=== PATIENT | female | born 1955 | race Caucasian/White ===

== ENCOUNTER 2017-09-28 11:14 | Inpatient (IN) | payer SELFPAY ==
[~2017-09-28] VITALS: Ht 170.2 cm; Wt 70.7 kg
[2017-09-28 12:16] LABS: BASOPHILS ABSOLUTE AUTO 0.02 K/mm3 (0.00-0.23); BASOPHILS PERCENT AUTO 0 % (0-2); EOSINOPHILS ABSOLUTE AUTO 0.02 K/mm3 (0.00-0.68); EOSINOPHILS PERCENT AUTO 0 % (0-6); Hematocrit 38.7 % (33.0-51.0); Hemoglobin 13.4 g/dL (11.5-16.0); IMMATURE GRAN ABSOLUTE AUTO 0.06 K/mm3 (0.00-0.10); IMMATURE GRAN PERCENT AUTO 0 % (0-1); LYMPHOCYTES ABSOLUTE AUTO 2.08 K/mm3 (0.84-5.20); LYMPHOCYTES PERCENT AUTO 14 % (21-46); MONOCYTES ABSOLUTE AUTO 0.75 K/mm3 (0.16-1.47); MONOCYTES PERCENT AUTO 5 % (4-13); Mean Corpuscular HGB 29.7 pg (26.0-34.0); Mean Corpuscular HGB Conc 34.6 g/dL (31.5-36.5); Mean Corpuscular Volume 86 fL (80-100); Mean Platelet Volume 11.3 fL (9.1-12.4); NEUTROPHILS ABSOLUTE AUTO 11.86 K/mm3 (1.96-9.15); NEUTROPHILS PERCENT AUTO 80 % (41-73); Platelet Count 209 K/mm3 (150-400); RDW Coefficient Variation 13.4 % (11.7-14.2); RDW Standard Deviation 41.9 fL (35.1-46.3); Red Blood Cell Count 4.51 M/mm3 (3.80-5.20); White Blood Cell Count 14.79 K/mm3 (4.00-11.30)
[2017-09-28 12:34] LABS: Alanine Aminotransfer (ALT/SGP 109 U/L (12-78); Albumin, Blood 3.3 g/dL (3.4-5.0); Albumin/Globulin Ratio 0.9 (0.8-1.8); Alk Phos 160 U/L (50-136); Anion Gap 5 mmol/L (6-16); Aspartate Aminotrans (AST/SGOT 87 U/L (12-37); Bilirubin, Total 0.5 mg/dL (0.1-1.0); Blood Urea Nitrogen 13 mg/dL (8-24); Bun/Creatinine Ratio 18.3 (12.0-20.0); CO2, Blood 25 mmol/L (21-32); Calcium, Blood 8.8 mg/dL (8.5-10.1); Chloride, Blood 107 mmol/L (98-108); Creatinine, Blood 0.71 mg/dL (0.40-1.00); Globulin, Blood 3.8 g/dL (2.2-4.0); Glomerular Filtration Rate >60 (60-); Glucose, Blood 118 mg/dL (70-99); Potassium, Blood 3.6 mmol/L (3.5-5.5); Sodium, Blood 137 mmol/L (136-145); Total Protein, Blood 7.1 g/dL (6.4-8.2)
[2017-09-28] MEDS ORDERED: Inderal 20 mg T20 MG PO (13:01)
[2017-09-28] MEDS ORDERED: PRAV20 PO (13:01)
[2017-09-28] MEDS ORDERED: PROBIOTIC1 EAC1 PO (13:02)
[2017-09-28] MEDS ORDERED: Prozac20 MG PO (13:02)
[2017-09-28 15:22] LABS: Appearance, Urine Clear (Clear); Bilirubin, Urine Neg (Neg); Blood, Urine 3+ (Neg); Color, Urine Yellow (P-Yellow); Glucose Qualitative, Urine Neg (Neg); Ketones, Urine 3+ (Neg); Leukocyte Esterase, Urine Neg (Neg); Nitrite, Urine Neg (Neg); Protein, Urine 1+ (Neg); Specific Gravity, Urine 1.015 (1.003-1.022); Urobilinogen, Urine NORM (Normal)
[2017-09-28 15:26] LABS: Bacteria Few /hpf; Squamous Epithelial Cells Few /hpf (Few); White Blood Cells, Urine 0-2 /hpf (0-5)
[2017-09-28 16:53] LABS: Hematocrit 35.8 % (33.0-51.0); Hemoglobin 12.3 g/dL (11.5-16.0)
[2017-09-28 20:18] LABS: Hematocrit 35.3 % (33.0-51.0)
[2017-09-29 05:17] LABS: Alanine Aminotransfer (ALT/SGP 87 U/L (12-78); Albumin/Globulin Ratio 0.9 (0.8-1.8); Alk Phos 160 U/L (50-136); Anion Gap 9 mmol/L (6-16); Aspartate Aminotrans (AST/SGOT 70 U/L (12-37); Bilirubin, Total 0.7 mg/dL (0.1-1.0); Blood Urea Nitrogen 8 mg/dL (8-24); CO2, Blood 22 mmol/L (21-32); Calcium, Blood 8.4 mg/dL (8.5-10.1); Chloride, Blood 109 mmol/L (98-108); Creatinine, Blood 0.73 mg/dL (0.40-1.00); Globulin, Blood 3.3 g/dL (2.2-4.0); Glomerular Filtration Rate >60 (60-); Glucose, Blood 83 mg/dL (70-99); Potassium, Blood 3.6 mmol/L (3.5-5.5); Sodium, Blood 140 mmol/L (136-145); Total Protein, Blood 6.3 g/dL (6.4-8.2)
[2017-09-29 10:28] LABS: Alpha Feto Protein, Tumor Mkr 2.5 ng/mL (0.0-8.0); Carcinoembryonic Antigen 3.5 ng/mL (0.0-3.0)
[2017-09-30 05:09] LABS: BASOPHILS ABSOLUTE AUTO 0.02 K/mm3 (0.00-0.23); BASOPHILS PERCENT AUTO 0 % (0-2); EOSINOPHILS ABSOLUTE AUTO 0.04 K/mm3 (0.00-0.68); EOSINOPHILS PERCENT AUTO 0 % (0-6); Hematocrit 33.8 % (33.0-51.0); Hemoglobin 11.5 g/dL (11.5-16.0); IMMATURE GRAN ABSOLUTE AUTO 0.01 K/mm3 (0.00-0.10); IMMATURE GRAN PERCENT AUTO 0 % (0-1); LYMPHOCYTES ABSOLUTE AUTO 2.83 K/mm3 (0.84-5.20); LYMPHOCYTES PERCENT AUTO 24 % (21-46); MONOCYTES ABSOLUTE AUTO 0.89 K/mm3 (0.16-1.47); MONOCYTES PERCENT AUTO 7 % (4-13); Mean Corpuscular HGB 29.5 pg (26.0-34.0); Mean Corpuscular Volume 87 fL (80-100); Mean Platelet Volume 10.7 fL (9.1-12.4); NEUTROPHILS ABSOLUTE AUTO 8.21 K/mm3 (1.96-9.15); NEUTROPHILS PERCENT AUTO 68 % (41-73); Platelet Count 201 K/mm3 (150-400); RDW Coefficient Variation 13.5 % (11.7-14.2); RDW Standard Deviation 42.5 fL (35.1-46.3)
[2017-09-30 05:39] LABS: Alanine Aminotransfer (ALT/SGP 94 U/L (12-78); Albumin, Blood 2.8 g/dL (3.4-5.0); Albumin/Globulin Ratio 0.8 (0.8-1.8); Alk Phos 196 U/L (50-136); Anion Gap 6 mmol/L (6-16); Aspartate Aminotrans (AST/SGOT 67 U/L (12-37); Bilirubin, Total 0.3 mg/dL (0.1-1.0); Blood Urea Nitrogen 10 mg/dL (8-24); CO2, Blood 27 mmol/L (21-32); Calcium, Blood 8.4 mg/dL (8.5-10.1); Chloride, Blood 106 mmol/L (98-108); Creatinine, Blood 0.77 mg/dL (0.40-1.00); Globulin, Blood 3.6 g/dL (2.2-4.0); Glomerular Filtration Rate >60 (60-); Glucose, Blood 123 mg/dL (70-99); Potassium, Blood 3.8 mmol/L (3.5-5.5); Sodium, Blood 139 mmol/L (136-145); Total Protein, Blood 6.4 g/dL (6.4-8.2)
[2017-09-30 07:18] LABS: HCV Non Reactive (NR)
[2017-09-30 07:20] LABS: RNP/SM Ab IgG 0.4 AI (<1.0)
[2017-10-01] MEDS ORDERED: Nicoderm Cq1 EAC1 TOP (10:49)
[2017-10-01] MEDS ORDERED: Omeprazole20 M1 PO (10:50)
[2017-10-01] MEDS ORDERED: PENVK500 PO (10:53)
[2017-10-01] MEDS ORDERED: SENN187 PO (10:53)
[2017-10-01] MEDS ORDERED: ROXICODONE5 MG PO (10:53)
[2017-10-02 05:54] LABS: C3 107 mg/dL
[2017-10-04 09:28] LABS: Hepatitis C Antibody Non Reactive (NR)
== END 2017-10-01 11:12 | disposition home or self-care (01) | DRG 378 ==
LOC: ER 11:14 → MEDS 11:15 → ENPENDDIS 10-01 10:13 → MEDS 10-01 11:12
PROVIDERS: Internal Medicine; Internal Medicine Gastroenterology; Physician Assistant
PROC: 0DB78ZX Excision of Stomach, Pylorus, Via Natural or Artificial Opening Endoscopic, Diagnostic (ICD-10-PCS; 2017-10-01)
PROC: 0DB68ZX Excision of Stomach, Via Natural or Artificial Opening Endoscopic, Diagnostic (ICD-10-PCS; 2017-10-01)
PROC: 0DB98ZX Excision of Duodenum, Via Natural or Artificial Opening Endoscopic, Diagnostic (ICD-10-PCS; principal; 2017-10-01 09:00)
DX: K26.4 Chronic or unspecified duodenal ulcer with hemorrhage (principal); A04.71 Enterocolitis due to Clostridium difficile, recurrent; L03.211 Cellulitis of face; T39.315A Adverse effect of propionic acid derivatives, initial encounter; F17.210 Nicotine dependence, cigarettes, uncomplicated; K25.9 Gastric ulcer, unspecified as acute or chronic, without hemorrhage or perforation; F32.9 Major depressive disorder, single episode, unspecified; E78.5 Hyperlipidemia, unspecified; R74.0 Nonspecific elevation of levels of transaminase and lactic acid dehydrogenase [LDH]; G25.0 Essential tremor; K04.7 Periapical abscess without sinus; Z79.899 Other long term (current) drug therapy; Z88.1 Allergy status to other antibiotic agents; Z88.5 Allergy status to narcotic agent; Z88.2 Allergy status to sulfonamides; Z98.890 Other specified postprocedural states
CPT/HCPCS: 36415; 70491; 76705; 80053; 80074; 81001; 82105; 82272; 82378; 83690; 85014; 85018; 85025; 86160; 86225; 86235; 86674; 86704; 86708; 86709; 86803; 86850; 86900; 86901; 87340; 87493; 88305; 88342; 96365; 96366; 96367; 96375; 96376; 99285; C9113; G0378; J0295; J3010; J7030; J7120; Q9967

== ENCOUNTER 2018-01-09 11:36 | Day surgery (SDC) | payer SELFPAY ==
[~2018-01-09] VITALS: Ht 170.2 cm; Wt 66.9 kg
[~2018-01-09 11:36] MED LIST: Inderal 20 mg T20 MG PO; Nicoderm Cq1 EAC1 TOP; Omeprazole20 M1 PO; PENVK500 PO; PRAV20 PO; PROBIOTIC1 EAC1 PO; Prozac20 MG PO; ROXICODONE5 MG PO; SENN187 PO
== END 2018-01-09 14:10 | disposition home or self-care (01) ==
LOC: ORSCSDS 11:36
PROVIDERS: Internal Medicine Gastroenterology
PROC: 0DBM8ZX Excision of Descending Colon, Via Natural or Artificial Opening Endoscopic, Diagnostic (ICD-10-PCS; principal; 2018-01-09 12:45)
PROC: 0DBL8ZX Excision of Transverse Colon, Via Natural or Artificial Opening Endoscopic, Diagnostic (ICD-10-PCS; principal; 2018-01-09 12:45)
PROC: 0DBE8ZX Excision of Large Intestine, Via Natural or Artificial Opening Endoscopic, Diagnostic (ICD-10-PCS; principal; 2018-01-09 12:45)
DX: R19.7 Diarrhea, unspecified (principal); A04.72 Enterocolitis due to Clostridium difficile, not specified as recurrent; D12.3 Benign neoplasm of transverse colon; K63.5 Polyp of colon; K64.8 Other hemorrhoids; K57.30 Diverticulosis of large intestine without perforation or abscess without bleeding; F17.210 Nicotine dependence, cigarettes, uncomplicated; Z79.899 Other long term (current) drug therapy
CPT/HCPCS: 88305; J7120

== ENCOUNTER → 2019-05-01 | Outpatient (CLI) | payer SELFPAY ==
[2019-05-01 15:10] LABS: BASOPHILS ABSOLUTE AUTO 0.02 K/mm3 (0.00-0.23); BASOPHILS PERCENT AUTO 0 % (0-2); EOSINOPHILS ABSOLUTE AUTO 0.03 K/mm3 (0.00-0.68); EOSINOPHILS PERCENT AUTO 0 % (0-6); Hematocrit 40.6 % (33.0-51.0); Hemoglobin 13.4 g/dL (11.5-16.0); IMMATURE GRAN ABSOLUTE AUTO 0.02 K/mm3 (0.00-0.10); IMMATURE GRAN PERCENT AUTO 0 % (0-1); LYMPHOCYTES PERCENT AUTO 32 % (21-46); MONOCYTES ABSOLUTE AUTO 0.38 K/mm3 (0.16-1.47); MONOCYTES PERCENT AUTO 5 % (4-13); Mean Corpuscular HGB 28.8 pg (26.0-34.0); Mean Corpuscular Volume 87 fL (80-100); Mean Platelet Volume 11.1 fL (9.1-12.4); NEUTROPHILS ABSOLUTE AUTO 4.38 K/mm3 (1.96-9.15); NEUTROPHILS PERCENT AUTO 61 % (41-73); Platelet Count 233 K/mm3 (150-400); RDW Standard Deviation 44.8 fL (35.1-46.3); Red Blood Cell Count 4.65 M/mm3 (3.80-5.20); White Blood Cell Count 7.13 K/mm3 (4.00-11.30)
[2019-05-01 15:20] LABS: Source, Urine Clean Catch
[2019-05-01 15:28] LABS: Squamous Epithelial Cells Mod /hpf (Few); White Blood Cells, Urine 0-2 /hpf (0-5)
[2019-05-01 15:29] LABS: Bacteria Few /hpf
== END | disposition home or self-care (01) ==
LOC: LAB SHORT 15:05 → LAB EV 15:05
PROVIDERS: Physician Assistant Medical
DX: R10.30 Lower abdominal pain, unspecified (principal); R35.0 Frequency of micturition
CPT/HCPCS: 81015; 85025

== ENCOUNTER → 2019-07-02 | Outpatient (CLI) | payer SELFPAY ==
[2019-07-02 17:36] LABS: Bilirubin, Urine Neg (Neg); Blood, Urine Neg (Neg); Glucose Qualitative, Urine Neg (Neg); Ketones, Urine Neg (Neg); Leukocyte Esterase, Urine Neg (Neg); Nitrite, Urine Neg (Neg); Protein, Urine Neg (Neg); Urobilinogen, Urine NORM (Normal)
[2019-07-02 17:42] LABS: Appearance, Urine Clear (Clear); Color, Urine Yellow (P-Yellow)
== END ==
LOC: LAB 16:42 → LAB SHORT 16:42
PROVIDERS: Family Medicine
DX: R31.9 Hematuria, unspecified (principal)
CPT/HCPCS: 81003

== ENCOUNTER → 2021-11-15 | Outpatient (CLI) | payer OTHER | END | disposition home or self-care (01) | LOC: LAB SHORT 17:35 → LAB 17:35 | DX: N39.0 Urinary tract infection, site not specified (principal) | CPT/HCPCS: 87077; 87086; 87186 ==

== ENCOUNTER → 2023-07-21 | Outpatient (CLI) | payer OTHER | END | disposition home or self-care (01) | LOC: LAB SHORT 15:35 → LAB 15:35 | DX: N39.0 Urinary tract infection, site not specified (principal) | CPT/HCPCS: 87077; 87086; 87186 ==

== ENCOUNTER 2023-07-29 17:04 | Emergency (ER) | payer OTHER ==
[~2023-07-29] VITALS: Ht 170.2 cm; Wt 68.0 kg
[2023-07-29 17:44] LABS: BASOPHILS ABSOLUTE AUTO 0.03 K/mm3 (0.00-0.23); BASOPHILS PERCENT AUTO 0 % (0-2); EOSINOPHILS PERCENT AUTO 0 % (0-6); Hemoglobin 13.7 g/dL (11.5-16.0); IMMATURE GRAN ABSOLUTE AUTO 0.06 K/mm3 (0.00-0.10); IMMATURE GRAN PERCENT AUTO 0 % (0-1); LYMPHOCYTES ABSOLUTE AUTO 1.43 K/mm3 (0.84-5.20); LYMPHOCYTES PERCENT AUTO 9 % (21-46); MONOCYTES ABSOLUTE AUTO 0.77 K/mm3 (0.16-1.47); MONOCYTES PERCENT AUTO 5 % (4-13); Mean Corpuscular HGB 28.9 pg (26.0-34.0); Mean Corpuscular HGB Conc 34.3 g/dL (31.5-36.5); Mean Corpuscular Volume 84 fL (80-100); Mean Platelet Volume 10.6 fL (9.1-12.4); NEUTROPHILS ABSOLUTE AUTO 14.37 K/mm3 (1.96-9.15); NEUTROPHILS PERCENT AUTO 86 % (41-73); Platelet Count 192 K/mm3 (150-400); RDW Coefficient Variation 14.2 % (11.7-14.2); RDW Standard Deviation 43.9 fL (35.1-46.3); Red Blood Cell Count 4.74 M/mm3 (3.80-5.20); White Blood Cell Count 16.66 K/mm3 (4.00-11.30)
[2023-07-29 18:03] LABS: Albumin, Blood 3.4 g/dL (3.4-5.0); Bilirubin, Total 1.3 mg/dL (0.1-1.0); Bun/Creatinine Ratio 13.3 (12.0-20.0); Calcium, Blood 9.1 mg/dL (8.5-10.1); Creatinine, Blood 0.83 mg/dL (0.40-1.00); Globulin, Blood 3.5 g/dL (2.2-4.0); Potassium, Blood 3.1 mmol/L (3.5-5.5); Total Protein, Blood 6.9 g/dL (6.4-8.2)
[2023-07-29] MEDS ORDERED: Prozac20 MG PO (19:31)
[2023-07-29] MEDS ORDERED: AMOCLA875 PO (19:31)
[2023-07-29] MEDS ORDERED: PROP10 PO (19:31)
[2023-07-29] MEDS ORDERED: SULTRIDS PO (20:35)
[2023-07-29] MEDS ORDERED: ONDA4ODT MM (20:35)
[2023-07-29 20:45] VITALS: BP 117/81
== END 2023-07-29 20:45 | disposition home or self-care (01) ==
LOC: ER 17:04
PROVIDERS: Physician Assistant
DX: R10.9 Unspecified abdominal pain (principal); R19.7 Diarrhea, unspecified; T36.0X5A Adverse effect of penicillins, initial encounter; Z79.899 Other long term (current) drug therapy; Z88.1 Allergy status to other antibiotic agents
CPT/HCPCS: 71046; 80053; 84484; 85025; 93005; 93010; 96361; 96374; 99284-25; J2405; J7030

== ENCOUNTER → 2023-08-01 | Outpatient (CLI) | payer OTHER ==
[~2023-08-01] MED LIST changes: +AMOCLA875 PO; +ONDA4ODT MM; +PROP10 PO; +SULTRIDS PO
[2023-08-01 14:57] LABS: Source, Urine Clean Catch
[2023-08-01 17:13] LABS: Appearance, Urine Clear (Clear); Bilirubin, Urine Neg (Neg); Blood, Urine 2+ (Neg); Color, Urine Yellow (P-Yellow); Glucose Qualitative, Urine Neg (Neg); Ketones, Urine Neg (Neg); Leukocyte Esterase, Urine Neg (Neg); Nitrite, Urine Neg (Neg); Protein, Urine 1+ (Neg); Urobilinogen, Urine NORM (Normal); pH, Urine 6.5 (5.0-8.0)
[2023-08-01 17:31] LABS: Bacteria Many /hpf; Mucus Light (0-Heavy); Squamous Epithelial Cells Few /hpf (Few); White Blood Cells, Urine 0-2 /hpf (0-5)
== END ==
LOC: LAB 14:55 → LAB SHORT 14:55
PROVIDERS: Physician Assistant
DX: N39.0 Urinary tract infection, site not specified (principal); R30.0 Dysuria
CPT/HCPCS: 81001; 87086

== ENCOUNTER → 2025-01-27 | Outpatient (CLI) | payer OTHER ==
[2025-01-27 17:33] LABS: Campylobacter Sp Not Detected (NOT DETECT); E. Coli O157 Not Detected (NOT DETECT); Enteroaggregative E. coli-EAEC Not Detected (NOT DETECT); Enteropathogenic E. coli-EPEC Not Detected (NOT DETECT); Enterotoxigenic E. coli-ETEC Not Detected (NOT DETECT); Salmonella Sp Not Detected (NOT DETECT); Shiga Toxin-prod E. coli-STEC Not Detected (NOT DETECT); Shigella/Enteroin E. coli-EIEC Not Detected (NOT DETECT); Vibrio Sp Not Detected (NOT DETECT)
== END ==
LOC: LAB 15:07 → LAB SHORT 15:07
PROVIDERS: Family Medicine
DX: R19.7 Diarrhea, unspecified (principal)
CPT/HCPCS: 87507

== ENCOUNTER → 2025-04-29 | Outpatient (CLI) | payer OTHER | END | disposition home or self-care (01) | LOC: LAB 18:03 → LAB SHORT 18:03 | DX: R30.0 Dysuria (principal) | CPT/HCPCS: 87077; 87086; 87186 ==